=== PATIENT | male | born 1985 | race Caucasian/White ===

== ENCOUNTER → 2017-11-10 12:20 | Outpatient (CLI) | payer MEDICARE, SELFPAY ==
[2017-11-10 16:08] LABS: Platelet Count 185 K/mm3 (150-450)
[2017-11-10 16:24] LABS: AST(SGOT) 9 U/L (15-37); Alanine Aminotransfer ALT/SGPT 19 U/L (16-61); Albumin, Serum 3.6 g/dL (3.2-5.0); Alkaline Phosphatase 40 U/L (45-117); Bilirubin, Direct 0.08 mg/dL (0.00-0.30); Globulin 3.6 g/dL (2.2-4.2); Protein, Total 7.2 g/dL (6.4-8.2)
[2017-11-10 16:39] LABS: Valproic Acid (Depakene) Level 58 ug/mL (50-100)
== END ==
PROVIDERS: Registered Nurse; Family Provider Family Medicine; PCP Family Medicine; Visit Provider Family Medicine
DX: Z79.899 Other long term (current) drug therapy (principal); F91.9 Conduct disorder, unspecified
CPT/HCPCS: 36415; 80076; 80164; 85049

== ENCOUNTER 2018-02-18 11:57 | Inpatient (IN) | payer MEDICARE, SELFPAY ==
[2018-02-18 11:59] VITALS: BP 108/78; PULSE 87; RESP 16; TEMP 36.6; O2SAT 100; BMI 22.7
--- NOTE | 2018-02-18 12:08 | RAD_ITS ---
STUDY: X-RAY - LEFT FOOT CLINICAL: Male, 32 years old. PAIN AND SWELLING TO HEEL AREA. NO TRAUMA. TECHNIQUE: 3 view(s) of the foot. COMPARISON: None. FINDINGS: Normal talus, calcaneus, and tarsal bones. Normal visualized subtalar, talonavicular, calcaneocuboid, tarsal and tarsometatarsal articulations. Normal metatarsi. Normal metatarsophalangeal joint of the great toe. Normal tibial and fibular sesamoid bones. Normal interphalangeal joint of the great toe. Normal phalanges of the great toe. Normal second through fifth metatarsophalangeal joints. Normal interphalangeal joints and phalanges of the lesser toes. The soft tissue structures are unremarkable. RAD/Foot min 3 Views IMPRESSION: Normal x-ray examination of the foot. Electronically Signed: Constance Lopez MD at 13:43 EDT Tel , Service support ,
[2018-02-18 13:11] LABS: Absolute Lymphocyte Count 1.22 X10^3/ul (0.83-4.51); Absolute Neutrophil Count 4.2 X10^3/uL (2.0-7.7); Basophil# 0.02 X10^3/uL; Basophil% 0.3 % (0-1); Eosinophil# 0.09 X10^3/uL; Eosinophils% 1.6 % (0-5); Hematocrit 44.4 % (40-54); Hemoglobin 14.8 g/dl (13.0-16.5); Lymphocyte # 1.22 X10^3/ul (4.0); Mean Corp Hgb Conc 33.3 g/gl (32-36); Mean Corpuscular Hgb 31.4 pg (27.0-32.0); Mean Corpuscular Volume 94.3 fL (80-94); Mean Platelet Vol. 10.3 fl (6.2-12.0); Monocyte# 0.31 X10^3/uL; Monocyte% 5.3 % (0-10); Neutrophil # 4.15 X10^3/uL (2.7-7.7); Neutrophil % 71.6 % (47-70); Platelet Count 181 K/mm3 (150-450); RBC Distribution Width CV 12.7 % (11.6-14.6); Red Blood Count 4.71 M/mm3 (4.6-6.2); White Blood Count 5.8 K/mm3 (4.4-11.0)
[2018-02-18 13:12] LABS: POSITIVE COUNT NO; POSITIVE DIFFERENTIAL NO; POSITIVE MORPHOLOGY NO
[2018-02-18 13:21] LABS: Anion Gap 4 (5-15); BUN 16 mg/dL (7-18); BUN/Creat Ratio 17.2 RATIO (10-20); Calcium,Total 8.8 mg/dL (8.5-10.1); Chloride 105 mmol/L (98-107); Creatinine, Serum 0.93 mg/dL (0.70-1.30); EST Glomerular Filtration Rate 99 mL/min (>60); Est Glom Filt Rate - Afr Amer 120 mL/min (>60); Glucose 65 mg/dL (74-106); Potassium 4.5 mmol/L (3.5-5.1); Sodium Level 140 mmol/L (136-145)
--- NOTE | 2018-02-18 13:44 | ED.VISSUMM ---
- ER Visit Summary Date of Service: 02/18/18 Chief Complaint: Left foot swelling and redness] History of Present Illness: The patient is a 32 M [presents the emergency department with left foot redness and swelling that the mother and sister noticed yesterday. No significant trauma related. Patient is somewhat of a poor historian as he has a history of prior encephalitis. Patient has been flushed today. No fever noted at home. Patient does have a history of prior infection to that left foot over the area of the heel that required surgical debridement and there was concern for osteo-myelitis at the time. Patient's mother and sister noted that patient had a blister to the left heel yesterday. Patient was more active than usual 2 days ago and normally wears tennis shoes when he is out and about.] Physical Examination: [HEENT-PERRLA, EOMI. Cranial nerves II through XII grossly intact. TMs clear. Mucous membranes moist. No adenopathy. Cardiovascular-regular rate and rhythm without murmur or ectopy Lungs-clear to auscultation, chest wall stable without crepitus or subcu emphysema Abdomen-normoactive bowel sounds, soft, nontender, no rebound or rigidity, no peritoneal signs. Extremities-intact ?4, normal range of motion, normal pulses. Left foot-patient has what appears to be a large blister to the left heel with some mild tenderness to palpation. Patient has some edema to the foot and erythema as well as warmth. He is neurovascular intact distally. Test Results: [Blood cultures ordered. CBC with differential obtained showed a white count of 5.8, hemoglobin 14.8, hematocrit 44, platelets 181. Chemistries unremarkable. Glucose was 65. X-ray of the left foot read by myself as nothing acute and awaiting official report from radiology.] Emergency Department Course and Treatment: Patient was started on Unasyn] Treatment Plan: [Admit for IV antibiotics given his history of prior significant infection to this left heel and foot requiring surgical debridement.] Disposition: [Admit] Impression: [Cellulitis left foot] This note was generated with [email or web address] dictation software. It may contain incorrect words, spelling, and punctuation that were not noted in review of the chart prior to signing ED Disposition - Plan for ED Patient: Chief Complaint: Edema Referrals: Carrington Baumann MD [Primary Care Provider] -
[2018-02-18 14:23] VITALS: BP 119/82; PULSE 64; RESP 18; TEMP 36.6; O2SAT 98
--- NOTE | 2018-02-18 14:28 | HP.PCM_ITS ---
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 He was admitted via the ED on 02/18/18 with a complaint of left heel swelling and tenderness. history obtained from his mother and sister. Swelling and tenderness ahs been ongoing for the past 2 days. they thought it would resolve with application of ice packs. However, it persisted. They noted that the area had become soft and boggy, with associated erythema. He history of similar ulceration over his left heel, for which he had debridement done a few years ago.He often rubs his heels on the bed when sleeping,and family thinks this may be the cause of it. They also noticed erythema of his right heel. They therefore decided to bring him in. In the ED, vitals were T-97.9F, RR -18. MI-94. B-119/82. CBC showed no leucocytosis with wbc-5.8, and BMP was WNL. He was started on unasyn and is being admitted to be managed for cellulitis of his left heel. 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 Bilateral chest tube placement ~ 5 years ago for lung collapse Lives: With Family - mother Smoking Status: Former smoker Drugs: None Review of Systems Constitutional: Reports: Chills HEENT: Reports: Difficulty Swallowing - is chronic. Cardiovascular: Denies: Chest Pain, Palpitations Respiratory: Denies: Cough, Hemoptysis, Pleuritic Pain, Shortness of Breath, Shortness of breath at rest, Sputum production Gastrointestinal: Denies: Abdominal Pain, Nausea, Vomiting Genitourinary: Denies: Dysuria Musculoskeletal: Reports: - - heel swelling and redness. 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 Hematologic/ Lymphatic: Denies: Easy Bruising, Easy Bleeding VTE Information - Inpt Only VTE Present on Admission: No VTE Pharm Prophylaxis ordered?: Yes Patient Problems: Active and Suspected Problems Cellulitis of left heel (Acute) - Physical Exam General: Alert, Cooperative, No apparent distress HEENT: Atraumatic, PERRLA, EOMI, Normocephalic Oral: Moist Mucosa Neck: Supple, No JVD, Negative Carotid Bruits Lungs: Clear to auscultation, Normal air movement, No rhonchi, No wheeze, No rales Cardiovascular: Regular rate, Regular Rhythm, Normal S1, Normal S2, No murmurs Abdomen: Bowel Sounds Present, Soft, Non Tender, Non-Distended, No Hepato- splenomegaly Extremities: - - 5x4cm soft, fluctuant abscess over the left heel, surrounded by mild erythema. Minimal tenderness to touch. blanchable erythema (~ 1x1cm) over right heel Skin: No rashes, No breakdown Musculoskeletal: - - minimal contractures of LEs from encephalitis Lymphatic: No Cervical, Supraclavicular, or Inguinal Adenopathy Neurological: Cranial nerves II-XII grossly intact, - - mild expressive aphasia due to encephalitis. 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 Abscess of left heel * per family, often rubs heels on sheets whilst sleeping; has no heel protectors * 5x4cm abscess over left heel, with some surrounding erythema * CBC: no leucocytosis or bands * started on IV unasyn in ED; will continue * heel protectors. * consult podiatry for possible I&D if needed. * 2. 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 * swallowing precautions. 3. DVT prophylaxis: heparin 4. GI prophylaxis: pepcid Code Visit OBSV E&M: 39468 Initial observation care L2
[2018-02-18 15:23] VITALS: BMI 22.7; BMI 22.8
[2018-02-18 16:12] VITALS: BP 117/79; PULSE 69; RESP 18; TEMP 37.1; O2SAT 96
[2018-02-18 17:01] LABS: Erythrocyte Sedimentation Rate 16 mm/hr (0-15)
--- NOTE | 2018-02-18 17:35 | PCM.PROGNOTE ---
Patient Problems: Active and Suspected Problems Cellulitis of left heel (Acute) Pain in left foot (Acute) Subjective: This 32 year old male patient was consulted to podiatry for left heel cellulitis as well as a slight boggy area to the heel. The patient is a poor historian due to some mental disability from encephalopathy in the past. I spoke to one of his sisters via telephone this afternoon. She says that he had been doing a lot of walking the last few days and that he also rubs his heels back and forth on his bed and the ground at times if he is nervous. She says that two days ago the mother and sister noticed some slight redness starting around the heel, and that yesterday the redness got slightly worse and he had some tenderness. They said they had been trying to keep his heels offloaded the last day, but wanted him to be checked in the ER to be safe today since the patient had a history of a heel ulcer that needed a surgical debridement approximately 4 or 5 years ago. Patient was admitted through the ER for IV antibiotics and further evaluation. Patient is currently afebrile and appears to be in no acute distress. - Physical Exam General: Alert, Oriented x3, Cooperative Extremities: Capillary Refill Less than 3 Seconds, No Calf Tenderness - negative isabelle and dailey sign, Edema - very minor edema to left heel area, Peripheral Pulses Normal - DP and PT pulses palpable Skin: - - No open ulcers or wounds noted. Very slight boggy area appreciated to left heel. There is no significant extending cellulitis appreciated at this time. There is very minor erythema surrounding the area (this is much improved over the last two or so hours on IV antibiotics according to his nurse). Again there is no open areas at this time so there is no purulence currently appreciated. Some tenderness noted to the area on palpation. Musculoskeletal: Tenderness - Slight tenderness to left heel Neurological: Sensory exam intact to light touch and pain Psych/Mental Status: Appropriate Vital Signs Temp Pulse Resp BP Pulse Ox 98.7 F 69 18 117/79 96 02/18/18 16:12 02/18/18 16:12 02/18/18 16:12 02/18/18 16:12 02/18/18 16:12 Oxygen Delivery Method Room Air Weight: 69.9 kg Body Mass Index (BMI) 22.7 Medical Necessity - Tobacco Use Smoking Status: Former smoker Assessment/Plan Active and Suspected Problems Cellulitis of left heel (Acute) Pain in left foot (Acute) Cellulitis of left heel Pain left foot Patient was carefully examined and evaluated bedside this evening in great detail. Patient is a poor historian due to previous encephalopathy, so much of the history and information was gathered from speaking with patient's sister via telephone. Currently patient's WBC is 5.8. ESR is 16 and his CRP is 6.4. Blood cultures still pending. Foot x-rays taken of left foot and were read by the radiologist as normal x-ray examination of the foot. No soft tissue emphysema noted. His vital signs are all currently stable. Patient is currently on IV unasyn. Again, according to the patient's nurse, there has been a significant reduction in surrounding erythema with just a couple hours of IV antibiotics so far. At this time, I recommend the patient be non weight bearing to the left heel. I also recommend that the patient have both heels completely floated off of the end of pillows so there is absolutely no pressure to his heels at all times while in bed. The patient has short term memory loss and he likes to move his heels for comfort according to the patient's family, so I recommend frequent checks on this patient to make sure he is being compliant with his offloading protocol. Medical management by primary team is appreciated. Podiatry will continue to follow this patient while in house and to monitor if any further intervention is warranted. Please contact with any questions or concerns.
[2018-02-18 20:15] VITALS: BP 107/70; PULSE 78; RESP 16; TEMP 36.3; O2SAT 100
[2018-02-18] MEDS: Nortriptyline 25 MG Capsule 50 MG PO (22:45)
[2018-02-18] MEDS: Divalproex Sodium 125 MG SPRINKLE 1000 MG PO (22:46)
[2018-02-19] MEDS: 0.9% NaCl Peripheral Flush Adult/Peds IV (01:14)
[2018-02-19 02:01] VITALS: BP 99/63; PULSE 92; RESP 16; TEMP 36.5; O2SAT 98
[2018-02-19 05:33] LABS: Absolute Lymphocyte Count 1.72 X10^3/ul (0.83-4.51); Absolute Neutrophil Count 3.5 X10^3/uL (2.0-7.7); Basophil# 0.02 X10^3/uL; Basophil% 0.3 % (0-1); Eosinophil# 0.14 X10^3/uL; Eosinophils% 2.4 % (0-5); Hematocrit 42.6 % (40-54); Lymphocyte # 1.72 X10^3/ul (4.0); Mean Corp Hgb Conc 32.9 g/gl (32-36); Mean Corpuscular Hgb 30.8 pg (27.0-32.0); Mean Corpuscular Volume 93.8 fL (80-94); Mean Platelet Vol. 10.5 fl (6.2-12.0); Monocyte# 0.33 X10^3/uL; Monocyte% 5.7 % (0-10); Neutrophil # 3.52 X10^3/uL (2.7-7.7); Neutrophil % 61.4 % (47-70); Platelet Count 172 K/mm3 (150-450); RBC Distribution Width CV 12.7 % (11.6-14.6); RBC Distribution Width SD 43.6 fl (35.1-43.9); Red Blood Count 4.54 M/mm3 (4.6-6.2); White Blood Count 5.7 K/mm3 (4.4-11.0)
[2018-02-19 05:38] LABS: POSITIVE COUNT NO; POSITIVE DIFFERENTIAL NO; POSITIVE MORPHOLOGY NO
[2018-02-19 05:41] LABS: Anion Gap 7 (5-15); BUN 22 mg/dL (7-18); BUN/Creat Ratio 29.2 RATIO (10-20); Calcium,Total 8.6 mg/dL (8.5-10.1); Chloride 105 mmol/L (98-107); Creatinine, Serum 0.75 mg/dL (0.70-1.30); EST Glomerular Filtration Rate 126 mL/min (>60); Est Glom Filt Rate - Afr Amer 153 mL/min (>60); Estimated Creatinine Clearance 138.51 ml/min; Glucose 76 mg/dL (74-106); Potassium 4.3 mmol/L (3.5-5.1); Sodium Level 142 mmol/L (136-145)
[2018-02-19 09:26] VITALS: BP 112/80; PULSE 86; RESP 18; TEMP 37.1; O2SAT 97
--- NOTE | 2018-02-19 09:27 | PCM.PN.HOSP ---
Patient Problems: Active and Suspected Problems Pain in left foot (Acute) Cellulitis of left heel (Acute) Subjective: Patient is a 32-year-old male with a past history of mental consolidation due to encephalitis. He was admitted on 02/18/2018 with a complaint of left heel swelling and tenderness. He has been managed for cellulitis of the left heel. He is on IV Unasyn and has remained stable. Podiatry is on board. Seen and examined this morning. Had no active complaints. Unable to do complains of review of systems on account of patient's MRDD. Vitals/I&O's: Vital Signs Temp Pulse Resp BP Pulse Ox 97.7 F L 92 16 99/63 98 02/19/18 02:01 02/19/18 02:01 02/19/18 02:01 02/19/18 02:01 02/19/18 02:01 Oxygen Delivery Method Room Air Weight: 154 lb 1.65 oz Body Mass Index (BMI) 22.7 Intake and Output for Last 24 Hours 02/17/18 02/18/18 02/19/18 23:59 23:59 23:59 Intake Total 240 / 240 Balance 240 / 240 General: Alert, Cooperative, Confused HEENT: Atraumatic, PERRLA, EOMI, Normocephalic Oral: Moist Mucosa Neck: Supple, No JVD, Negative Carotid Bruits Lungs: Clear to auscultation, Normal air movement, No rhonchi, No wheeze Cardiovascular: Regular rate, Regular Rhythm, Normal S1, Normal S2, No murmurs Abdomen: Bowel Sounds Present, Soft, Non Tender, Non-Distended, No Hepato-splenomegaly Extremities: No clubbing, No cyanosis, No edema, Capillary Refill Less than 3 Seconds, - - Redness of left heel and the swelling have improved significantly since yesterday. Erythema is pretty much resolved. Has slight bulky area over the left heel. Feet were propped up on a pillow in bed. Minimal erythema over right heel and has improved significantly from yesterday. Skin: No rashes, No breakdown Musculoskeletal: No Tenderness to Palpation of Joints or Extremities Lymphatic: No Cervical, Supraclavicular, or Inguinal Adenopathy Neurological: Cranial nerves II-XII grossly intact, Slurred Speech - From MRDD due to encephalitis Psych/Mental Status: Normal Affect Laboratory Results 02/19/18 04:55: WBC 5.7, RBC 4.54 L, Hgb 14.0, Hct 42.6, MCV 93.8, MCH 30.8, MCHC 32.9, RDW 12.7, RDW Differential 43.6, Plt Count 172, MPV 10.5, Immature Gran % (Auto) 0.200, Neut % (Auto) 61.4, Lymph % (Auto) 30.0, [place] % (Auto) 5.7, Eos % (Auto) 2.4, Baso % (Auto) 0.3, Absolute Neuts (auto) 3.5, Absolute Lymphs (auto) 1.72, Total Counted Not Reportable 02/19/18 04:55: Sodium 142, Potassium 4.3, Chloride 105, Carbon Dioxide 30.0, Anion Gap 7, BUN 22 H, Creatinine 0.75, Estim Creat Clear Calc 138.51, Est GFR (MDRD) Af Amer 153, Est GFR (MDRD) Non-Af 126, BUN/Creatinine Ratio 29.2 H, Glucose 76, Calcium 8.6 Current Medications Acetaminophen (Tylenol) 650 mg PO Q6H PRN PRN PRN Reason: PAIN Divalproex Sodium (Depakote Sprinkles) 500 mg PO BREAKFAST [facility] Divalproex Sodium (Depakote Sprinkles) 1,000 mg PO QHS [facility] Last Admin: 02/18/18 22:46 Dose: 1,000 mg Enoxaparin Sodium (Lovenox) 40 mg SC DAILY@1000 [facility] Ampicillin Sodium/Sulbactam (Sodium 3 gm/ Sodium Chloride) 112 mls @ 150 mls/hr IV Q6 [facility] Last Admin: 02/19/18 06:26 Dose: 150 mls/hr Magnesium Hydroxide (Milk Of Magnesia) 30 ml PO DAILY PRN PRN PRN Reason: Constipation Non-Formulary Medication (Haloperidol Decanoate [Haldol Decanoate 100]) 100 mg IM Q14D [facility] Nortriptyline HCl (Pamelor) 50 mg PO QHS [facility] Last Admin: 02/18/18 22:45 Dose: 50 mg Pantoprazole Sodium (Protonix) 20 mg PO DAILY [facility] Sodium Chloride () 5 - 30 ml IV UD PRN PRN Reason: SALINE FLUSH Last Admin: 02/19/18 01:14 Dose: 10 ml Medical Necessity - Tobacco Use Smoking Status: Former smoker Assessment/Plan Active and Suspected Problems Pain in left foot (Acute) Cellulitis of left heel (Acute) 32 y/o male with a PMH of 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 Cellulitis and Abscess of left heel resolving. Looks much better CBC: still no leucocytosis. had similar presentation some years ago and had debridement of the left heel on IV unasyn- today is day 2. podiatry on board; advocate patient be nonweight bearing on left heel. both heels should be completely floated off end of pillows so theres no pressure on his heels 2. 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 swallowing precautions. 3. DVT prophylaxis: heparin 4. GI prophylaxis: pepcid Disposition: for possible dc tomorrow. This note was generated with [employer] dictation software. It may contain incorrect words, spelling, and punctuation that were not noted in checking the note before signing. Code Visit Inpatient E&M: 00560 Subs Hosp L2
[2018-02-19] MEDS: Divalproex Sodium 125 MG SPRINKLE 500 MG PO (09:29)
[2018-02-19] MEDS: Pantoprazole Sodium 20 MG Tablet PO (09:30)
--- NOTE | 2018-02-19 09:32 | PN_ITS ---
Patient Problems: Active and Suspected Problems Pain in left foot (Acute) Cellulitis of left heel (Acute) Subjective: Patient is a 32-year-old male with a past history of mental consolidation due to encephalitis. He was admitted on 02/18/2018 with a complaint of left heel swelling and tenderness. He has been managed for cellulitis of the left heel. He is on IV Unasyn and has remained stable. Podiatry is on board. Seen and examined this morning. Had no active complaints. Unable to do complains of review of systems on account of patient's MRDD. Vitals/I&O's: Vital Signs Temp Pulse Resp BP Pulse Ox 97.7 F L 92 16 99/63 98 02/19/18 02:01 02/19/18 02:01 02/19/18 02:01 02/19/18 02:01 02/19/18 02:01 Oxygen Delivery Method Room Air Weight: 154 lb 1.65 oz Body Mass Index (BMI) 22.7 Intake and Output for Last 24 Hours 02/17/18 02/18/18 02/19/18 23:59 23:59 23:59 Intake Total 240 / 240 Balance 240 / 240 General: Alert, Cooperative, Confused HEENT: Atraumatic, PERRLA, EOMI, Normocephalic Oral: Moist Mucosa Neck: Supple, No JVD, Negative Carotid Bruits Lungs: Clear to auscultation, Normal air movement, No rhonchi, No wheeze Cardiovascular: Regular rate, Regular Rhythm, Normal S1, Normal S2, No murmurs Abdomen: Bowel Sounds Present, Soft, Non Tender, Non-Distended, No Hepato- splenomegaly Extremities: No clubbing, No cyanosis, No edema, Capillary Refill Less than 3 Seconds, - - Redness of left heel and the swelling have improved significantly since yesterday. Erythema is pretty much resolved. Has slight bulky area over the left heel. Feet were propped up on a pillow in bed. Minimal erythema over right heel and has improved significantly from yesterday. Skin: No rashes, No breakdown Musculoskeletal: No Tenderness to Palpation of Joints or Extremities Lymphatic: No Cervical, Supraclavicular, or Inguinal Adenopathy Neurological: Cranial nerves II-XII grossly intact, Slurred Speech - From MRDD due to encephalitis Psych/Mental Status: Normal Affect Laboratory Results 02/19/18 04:55: WBC 5.7, RBC 4.54 L, Hgb 14.0, Hct 42.6, MCV 93.8, MCH 30.8, MCHC 32.9, RDW 12.7, RDW Differential 43.6, Plt Count 172, MPV 10.5, Immature Gran % (Auto) 0.200, Neut % (Auto) 61.4, Lymph % (Auto) 30.0, [place] % (Auto) 5.7 , Eos % (Auto) 2.4, Baso % (Auto) 0.3, Absolute Neuts (auto) 3.5, Absolute Lymphs (auto) 1.72, Total Counted Not Reportable 02/19/18 04:55: Sodium 142, Potassium 4.3, Chloride 105, Carbon Dioxide 30.0, Anion Gap 7, BUN 22 H, Creatinine 0.75, Estim Creat Clear Calc 138.51, Est GFR ( MDRD) Af Amer 153, Est GFR (MDRD) Non-Af 126, BUN/Creatinine Ratio 29.2 H, Glucose 76, Calcium 8.6 Current Medications Acetaminophen (Tylenol) 650 mg PO Q6H PRN PRN PRN Reason: PAIN Divalproex Sodium (Depakote Sprinkles) 500 mg PO BREAKFAST [facility] Divalproex Sodium (Depakote Sprinkles) 1,000 mg PO QHS [facility] Last Admin: 02/18/18 22:46 Dose: 1,000 mg Enoxaparin Sodium (Lovenox) 40 mg SC DAILY@1000 [facility] Ampicillin Sodium/Sulbactam (Sodium 3 gm/ Sodium Chloride) 112 mls @ 150 mls/ hr IV Q6 [facility] Last Admin: 02/19/18 06:26 Dose: 150 mls/hr Magnesium Hydroxide (Milk Of Magnesia) 30 ml PO DAILY PRN PRN PRN Reason: Constipation Non-Formulary Medication (Haloperidol Decanoate [Haldol Decanoate 100]) 100 mg IM Q14D [facility] Nortriptyline HCl (Pamelor) 50 mg PO QHS [facility] Last Admin: 02/18/18 22:45 Dose: 50 mg Pantoprazole Sodium (Protonix) 20 mg PO DAILY [facility] Sodium Chloride () 5 - 30 ml IV UD PRN PRN Reason: SALINE FLUSH Last Admin: 02/19/18 01:14 Dose: 10 ml Medical Necessity - Tobacco Use Smoking Status: Former smoker Assessment/Plan Active and Suspected Problems Pain in left foot (Acute) Cellulitis of left heel (Acute) 32 y/o male with a PMH of 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 Cellulitis and Abscess of left heel * resolving. Looks much better * CBC: still no leucocytosis. * had similar presentation some years ago and had debridement of the left heel * on IV unasyn- today is day 2. * podiatry on board; advocate patient be nonweight bearing on left heel. * both heels should be completely floated off end of pillows so theres no pressure on his heels * * 2. 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 * swallowing precautions. 3. DVT prophylaxis: heparin 4. GI prophylaxis: pepcid Disposition: for possible dc tomorrow. This note was generated with [employer] dictation software. It may contain incorrect words, spelling, and punctuation that were not noted in checking the note before signing. Code Visit Inpatient E&M: 09053 Subs Hosp L2
--- NOTE | 2018-02-19 10:21 | CM.UR ---
Attempted to meet with patient however he is unable to give information and no family is at bedside. Anson Guzman RN, CCM.
--- NOTE | 2018-02-19 10:50 | PN_ITS ---
Patient Problems: Active and Suspected Problems Pain in left foot (Acute) Cellulitis of left heel (Acute) Subjective: Patient was seen again this morning resting bedside for left heel pressure injury. He is resting comfortably and in no distress. He has an appetite. He says he had no issues throughout the evening. Again, patient is poor historian due to his mental disability. Patient remains afebrile. - Physical Exam General: Alert, Oriented x3, Cooperative Extremities: Capillary Refill Less than 3 Seconds, No Calf Tenderness - negative isabelle and dailey sign, Edema - decresed edema to left heel, Peripheral Pulses Normal - DP and PT pulses palpable Skin: - - No open ulcers or wounds appreciated again today. Very minor boggy area appreciated to left heel is slightly improved today. There is no significant extending cellulitis appreciated at this time. There is very minor erythema surrounding the area and this has again improved since the patietn was evaluated last evening. Patient's pain to the left heel has improved again today as well. Musculoskeletal: - - Improving tenderness to left heel Neurological: Sensory exam intact to light touch and pain Psych/Mental Status: Appropriate Vital Signs Temp Pulse Resp BP Pulse Ox 98.8 F 86 18 112/80 97 02/19/18 09:26 02/19/18 09:26 02/19/18 09:26 02/19/18 09:26 02/19/18 09:26 Oxygen Delivery Method Room Air Weight: 69.9 kg Body Mass Index (BMI) 22.7 Intake and Output for Last 24 Hours 02/17/18 02/18/18 02/19/18 23:59 23:59 23:59 Intake Total 240 / 240 Balance 240 / 240 Laboratory Tests Past 24 Hrs 02/19/18 02/19/18 04:55 04:55 WBC 5.7 RBC 4.54 L Hgb 14.0 Hct 42.6 MCV 93.8 MCH 30.8 MCHC 32.9 RDW 12.7 RDW Differential 43.6 Plt Count 172 MPV 10.5 Immature Gran % (Auto) 0.200 Neut % (Auto) 61.4 Lymph % (Auto) 30.0 [place] % (Auto) 5.7 Eos % (Auto) 2.4 Baso % (Auto) 0.3 Absolute Neuts (auto) 3.5 Absolute Lymphs (auto) 1.72 Total Counted Not Reportable Sodium 142 Potassium 4.3 Chloride 105 Carbon Dioxide 30.0 Anion Gap 7 BUN 22 H Creatinine 0.75 Estim Creat Clear Calc 138.51 Est GFR (MDRD) Af Amer 153 Est GFR (MDRD) Non-Af 126 BUN/Creatinine Ratio 29.2 H Glucose 76 Calcium 8.6 Medical Necessity - Tobacco Use Smoking Status: Former smoker Assessment/Plan Active and Suspected Problems Pain in left foot (Acute) Cellulitis of left heel (Acute) Cellulitis of left heel (improving) Pain left foot (improving) Patient was carefully examined and evaluated bedside again today. 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 Currently patient's WBC is 5.7. ESR is 16 and his CRP is 6.4. Blood cultures still pending. Vital signs are all stable at this time. Foot x-rays taken yesterday of left foot and were read by the radiologist as normal x-ray examination of the foot. No soft tissue emphysema noted. Patient is currently on IV unasyn. Erythema continues to improve to the left heel while on antibiotics. I continue to recommend the patient be non weight bearing to the left heel. I also recommend that the patient have both heels completely floated off of the end of pillows so there is absolutely no pressure to his heels at all times while in bed. I recommend and placed orders as well for the patient to be non weight bearing to the left heel as well as to have both of his heels completely floated off of the ends of pillows at all times while in bed. I also placed an order for frequent checks on this patient to make sure he remains compliant, as he has short term memory loss and moves his legs/feet for comfort. Medical management by primary team is appreciated. Podiatry will continue to follow this patient while in house. Please contact with any questions or concerns.
[2018-02-19 14:25] VITALS: BP 95/75; PULSE 101; RESP 18; TEMP 36.4; O2SAT 99
[2018-02-19 20:46] VITALS: BP 112/77; PULSE 87; RESP 18; TEMP 36.9; O2SAT 100
[2018-02-19] MEDS: Divalproex Sodium 125 MG SPRINKLE 1000 MG PO (22:48)
[2018-02-19] MEDS: Nortriptyline 25 MG Capsule 50 MG PO (22:48)
[2018-02-20 03:32] VITALS: BP 112/80; PULSE 78; RESP 18; TEMP 36.8; O2SAT 99
[2018-02-20 07:01] LABS: Absolute Lymphocyte Count 1.49 X10^3/ul (0.83-4.51); Absolute Neutrophil Count 3.4 X10^3/uL (2.0-7.7); Basophil# 0.02 X10^3/uL; Basophil% 0.4 % (0-1); Eosinophil# 0.09 X10^3/uL; Eosinophils% 1.7 % (0-5); Hematocrit 42.9 % (40-54); Hemoglobin 14.2 g/dl (13.0-16.5); Lymphocyte # 1.49 X10^3/ul (4.0); Lymphocyte % 27.7 % (19-41); Mean Corp Hgb Conc 33.1 g/gl (32-36); Mean Corpuscular Hgb 30.9 pg (27.0-32.0); Mean Corpuscular Volume 93.3 fL (80-94); Mean Platelet Vol. 10.4 fl (6.2-12.0); Monocyte# 0.33 X10^3/uL; Monocyte% 6.1 % (0-10); Neutrophil # 3.43 X10^3/uL (2.7-7.7); Neutrophil % 63.7 % (47-70); Platelet Count 179 K/mm3 (150-450); RBC Distribution Width CV 12.7 % (11.6-14.6); White Blood Count 5.4 K/mm3 (4.4-11.0)
[2018-02-20 07:02] LABS: POSITIVE COUNT NO; POSITIVE DIFFERENTIAL NO; POSITIVE MORPHOLOGY NO
[2018-02-20 07:20] LABS: Anion Gap 8 (5-15); BUN 16 mg/dL (7-18); Calcium,Total 8.6 mg/dL (8.5-10.1); Chloride 105 mmol/L (98-107); Creatinine, Serum 0.64 mg/dL (0.70-1.30); EST Glomerular Filtration Rate 153 mL/min (>60); Est Glom Filt Rate - Afr Amer 185 mL/min (>60); Estimated Creatinine Clearance 162.31 ml/min; Glucose 77 mg/dL (74-106); Potassium 4.1 mmol/L (3.5-5.1); Sodium Level 143 mmol/L (136-145)
[2018-02-20 08:03] VITALS: BP 123/94; PULSE 89; RESP 18; TEMP 36.4; O2SAT 98
[2018-02-20] MEDS: Divalproex Sodium 125 MG SPRINKLE 500 MG PO (08:09)
[2018-02-20] MEDS: Pantoprazole Sodium 20 MG Tablet PO (08:12)
--- NOTE | 2018-02-20 08:35 | PCM.PROGNOTE ---
Patient Problems: Active and Suspected Problems Pain in left foot (Acute) Cellulitis of left heel (Acute) Subjective: Patient seen today for follow up on cellulitis left heel. Patient was sitting up in chair drawing a picture. Patient is afebrile, WBC normal. - Physical Exam General: Alert, Oriented x3, Cooperative, No apparent distress Extremities: No cyanosis, No edema, Capillary Refill Less than 3 Seconds, No Calf Tenderness, Peripheral Pulses Normal, - - Left foot/heel: cellulitis appears to be resolved at this time. There are no open lesions, no drainage, no maloder, no necrosis, no blistering, no fluctuance appreciated bilateral foot/ankle. There is no streaking, no erythema, no ecchymosis bilateral foot/ankle. Smooth painfree ROM to the foot/ankle bilateral. Vital Signs Temp Pulse Resp BP Pulse Ox 97.6 F L 89 18 123/94 H 98 02/20/18 08:03 02/20/18 08:03 02/20/18 08:03 02/20/18 08:03 02/20/18 08:03 Oxygen Delivery Method Room Air Weight: 69.9 kg Body Mass Index (BMI) 22.7 Intake and Output for Last 24 Hours 02/18/18 02/19/18 02/20/18 23:59 23:59 23:59 Intake Total 240 / 240 1577 / 1577 400 / 400 Balance 240 / 240 1577 / 1577 400 / 400 Laboratory Tests Past 24 Hrs 02/20/18 02/20/18 05:25 05:25 WBC 5.4 RBC 4.60 Hgb 14.2 Hct 42.9 MCV 93.3 MCH 30.9 MCHC 33.1 RDW 12.7 RDW Differential 43.0 Plt Count 179 MPV 10.4 Immature Gran % (Auto) 0.400 Neut % (Auto) 63.7 Lymph % (Auto) 27.7 [place] % (Auto) 6.1 Eos % (Auto) 1.7 Baso % (Auto) 0.4 Absolute Neuts (auto) 3.4 Absolute Lymphs (auto) 1.49 Total Counted Not Reportable Sodium 143 Potassium 4.1 Chloride 105 Carbon Dioxide 30.0 Anion Gap 8 BUN 16 Creatinine 0.64 L Estim Creat Clear Calc 162.31 Est GFR (MDRD) Af Amer 185 Est GFR (MDRD) Non-Af 153 BUN/Creatinine Ratio 25.0 H Glucose 77 Calcium 8.6 Medical Necessity - Tobacco Use Smoking Status: Former smoker Assessment/Plan Active and Suspected Problems Pain in left foot (Acute) Cellulitis of left heel (Acute) Cellulitis of left heel Pain left foot Re-evaluation performed. Left foot much improved with antibiotic therapy. Blood cultures pending. No wound culture was obtained to left foot as there are no open ulcerations or areas to culture at this time. Keep both heels offloaded at all times. Medical management by primary team is appreciated. Podiatry will continue to follow this patient while in house and to monitor if any further intervention is warranted. Please contact with any questions or concerns.
--- NOTE | 2018-02-20 10:32 | PCM.DC ---
- Discharge Diagnoses Current Active Problems: Current Active and Chronic Problems Pain in left foot (Acute) Cellulitis of left heel (Acute) You will use the following diet at home:: Regular Your food should be the consistency of: Regular Discharge Activity: Return to Normal Activity Weight Bearing Status: Weight bearing as tolerated Call your doctor if you observe: Fever of 101 or Higher, Shortness of breath, Dizziness, Fainting spells, Chest pain, Increased palpitations (irregular heartbeat), Uncontrolled pain Allergies/Adverse Reactions: Allergies No Known Allergies Allergy (Verified 02/18/18 12:00) Medications to take at Discharge Haloperidol Decanoate [Haldol Decanoate 100] 100 mg IM Q14D #1 02/07/14 Omeprazole [Prilosec] 20 mg PO DAILY 05/17/14 Divalproex Sodium [Depakote] 1,000 mg PO QHS 02/18/18 Divalproex Sodium [Depakote] 500 mg PO BREAKFAST 02/18/18 Nortriptyline HCl 50 mg PO QHS 02/18/18 Amox/Clavulanate Tablet [Augmentin Tablet] 875 mg PO Q12H #14 tab 02/20/18 The following prescriptions were given: Amox/Clavulanate Tablet [Augmentin Tablet] 875 mg PO Q12H #14 tab Primary Care Physician: Carrington Baumann MD [Primary Care Provider] - Please follow up with your Primary Care Physician in: 2 weeks. Please Follow Up With: Jevon Nielsen DPM When: please call his office.
--- NOTE | 2018-02-20 14:47 | PCM.DC.SUM ---
Discharge Date and Diagnosis Date of Admission: 02/18/18 Date of Discharge: 02/20/18 - Primary Discharge Diagnosis Left heel cellulitis, no evidence of abscess. 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 Electronically Signed: Constance Lopez MD at 13:43 EDT Tel , Service support , Dr. Florez, Dr. Nielsen, podiatry medicine. Operations: None Procedures: None Summary of Care Provided: Patient seen and examined on the day of discharge and appeared to be stable to be discharged home. He is nonverbal and no reported complaints or symptoms. His vital signs are stable. Erythema and swelling of the left he almost completely resolved. - Physical Exam General: Alert, nonverbal, Cooperative, No apparent distress. HEENT: Atraumatic, PERRLA, EOMI. Neck: Supple, No JVD, Negative Carotid Bruits, Trachea Midline, Thyroid Normal. Lungs: Clear to auscultation, Normal air movement, No rhonchi, No wheeze, No rales. Cardiovascular: Regular rate, Regular Rhythm, Normal S1, Normal S2, PMI Normal. Abdomen: Bowel Sounds Present, Soft, Non Tender, Non-Distended, No Hepato-splenomegaly. Extremities: No clubbing, No cyanosis, No edema Skin: No rashes, No breakdown Neurological: Neuro grossly intact Hospital course: This is a 2-3 years old male patient admitted because of left heel swelling and pain and he was found to have left heel cellulitis. The patient has mental retardation and most of the information was obtained from his mother and sister during this hospital stay. He was treated with IV Unasyn. X-ray of the left foot was normal without evidence of acute fractures or significant soft tissue changes. Podiatry medicine consulted and recommended to continue IV antibiotics without need for surgical interventions. With IV antibiotics, swelling and erythema of the left hand significantly improved and almost resolved. His blood culture showed no growth in 48 hours. He remained afebrile throughout admission. Routine blood work was unremarkable. Patient discharged home in a stable medical condition, discharged on Augmentin twice daily for 7 days, plan to follow-up with podiatry medicine later this week, follow-up with PCP in 2 weeks. Discharge Activity: Return to Normal Activity Weight Bearing Status: Weight bearing as tolerated Call your doctor if you observe: Fever of 101 or Higher, Shortness of breath, Dizziness, Fainting spells, Chest pain, Increased palpitations (irregular heartbeat), Uncontrolled pain Home Medications: Medications to take at Discharge Haloperidol Decanoate [Haldol Decanoate 100] 100 mg IM Q14D #1 02/07/14 Omeprazole [Prilosec] 20 mg PO DAILY 05/17/14 Divalproex Sodium [Depakote] 1,000 mg PO QHS 02/18/18 Divalproex Sodium [Depakote] 500 mg PO BREAKFAST 02/18/18 Nortriptyline HCl 50 mg PO QHS 02/18/18 Amox/Clavulanate Tablet [Augmentin Tablet] 875 mg PO Q12H #14 tab 02/20/18 Following Prescrptions Were Given to Patient: Amox/Clavulanate Tablet [Augmentin Tablet] 875 mg PO Q12H #14 tab Primary Care Physician: Carrington Baumann MD [Primary Care Provider] - Please follow up with your Primary Care Physician in: 2 weeks. Please Follow Up With: Jevon Nielsen DPM When: please call his office. Disposition: Home Minutes spent on discharge:: 26 Patient Condition:: Stable Medical Necessity - Tobacco Use Smoking Status: Former smoker Meaningful Use Info Meaningful Use Diagnoses (Choose all that apply): None applicable Code Visit Inpatient E&M: 55977 Disch Hosp
--- NOTE | 2018-02-20 14:52 | DS.PCM_ITS ---
Discharge Date and Diagnosis Date of Admission: 02/18/18 Date of Discharge: 02/20/18 - Primary Discharge Diagnosis Left heel cellulitis, no evidence of abscess. 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 Electronically Signed: Constance Lopez MD at 13:43 EDT Tel , Service support , Dr. Florez, Dr. Nielsen, podiatry medicine. Operations: None Procedures: None Summary of Care Provided: Patient seen and examined on the day of discharge and appeared to be stable to be discharged home. He is nonverbal and no reported complaints or symptoms. His vital signs are stable. Erythema and swelling of the left he almost completely resolved. - Physical Exam General: Alert, nonverbal, Cooperative, No apparent distress. HEENT: Atraumatic, PERRLA, EOMI. Neck: Supple, No JVD, Negative Carotid Bruits, Trachea Midline, Thyroid Normal. Lungs: Clear to auscultation, Normal air movement, No rhonchi, No wheeze, No rales. Cardiovascular: Regular rate, Regular Rhythm, Normal S1, Normal S2, PMI Normal. Abdomen: Bowel Sounds Present, Soft, Non Tender, Non-Distended, No Hepato- splenomegaly. Extremities: No clubbing, No cyanosis, No edema Skin: No rashes, No breakdown Neurological: Neuro grossly intact Hospital course: This is a 2-3 years old male patient admitted because of left heel swelling and pain and he was found to have left heel cellulitis. The patient has mental retardation and most of the information was obtained from his mother and sister during this hospital stay. He was treated with IV Unasyn. X-ray of the left foot was normal without evidence of acute fractures or significant soft tissue changes. Podiatry medicine consulted and recommended to continue IV antibiotics without need for surgical interventions. With IV antibiotics, swelling and erythema of the left hand significantly improved and almost resolved. His blood culture showed no growth in 48 hours. He remained afebrile throughout admission. Routine blood work was unremarkable. Patient discharged home in a stable medical condition, discharged on Augmentin twice daily for 7 days, plan to follow-up with podiatry medicine later this week, follow-up with PCP in 2 weeks. Discharge Activity: Return to Normal Activity Weight Bearing Status: Weight bearing as tolerated Call your doctor if you observe: Fever of 101 or Higher, Shortness of breath, Dizziness, Fainting spells, Chest pain, Increased palpitations (irregular heartbeat), Uncontrolled pain Home Medications: Medications to take at Discharge Haloperidol Decanoate [Haldol Decanoate 100] 100 mg IM Q14D #1 02/07/14 Omeprazole [Prilosec] 20 mg PO DAILY 05/17/14 Divalproex Sodium [Depakote] 1,000 mg PO QHS 02/18/18 Divalproex Sodium [Depakote] 500 mg PO BREAKFAST 02/18/18 Nortriptyline HCl 50 mg PO QHS 02/18/18 Amox/Clavulanate Tablet [Augmentin Tablet] 875 mg PO Q12H #14 tab 02/20/18 Following Prescrptions Were Given to Patient: Amox/Clavulanate Tablet [Augmentin Tablet] 875 mg PO Q12H #14 tab Primary Care Physician: Carrington Baumann MD [Primary Care Provider] - Please follow up with your Primary Care Physician in: 2 weeks. Please Follow Up With: Jevon Nielsen DPM When: please call his office. Disposition: Home Minutes spent on discharge:: 26 Patient Condition:: Stable Medical Necessity - Tobacco Use Smoking Status: Former smoker Meaningful Use Info Meaningful Use Diagnoses (Choose all that apply): None applicable Code Visit Inpatient E&M: 40141 Disch Hosp
== END 2018-02-20 13:08 | disposition home or self-care (01) | DRG 602 ==
LOC: ED 12:17 → MS3 14:19
PROVIDERS: Podiatrist; Admitting Provider Student in an Organized Health Care Education/Training Program; Emergency Provider Emergency Medicine; Family Provider Family Medicine; PCP Family Medicine; Visit Provider Hospitalist
DX: L03.116 Cellulitis of left lower limb (principal); G93.49 Other encephalopathy; Z87.891 Personal history of nicotine dependence; Z79.899 Other long term (current) drug therapy
CPT/HCPCS: 36415; 73630; 80048; 85025; 85652; 86140; 87040; 99285; A4216; J0295

== ENCOUNTER → 2018-04-26 07:40 | Outpatient (CLI) | payer MEDICARE, SELFPAY ==
--- NOTE | 2018-04-26 07:43 | RAD_ITS ---
STUDY: X-RAY - ESOPHAGUS (BARIUM SWALLOW) WITH FLUOROSCOPY REASON FOR EXAM: Male, 32 years old. Dysphagia. TECHNIQUE: 18 view(s) of the esophagus were obtained following swallowing of barium. FLUOROSCOPY TIME (if supplied): (0:58) minutes/seconds COMPARISON: None. FINDINGS: There is no demonstrated esophageal foreign body. There is no demonstrated stricture or mucosal abnormality. Normal gastroesophageal junction, without a demonstrated hiatal hernia. Normal visualized aortic arch and descending thoracic aorta. Normal visualized pulmonary parenchyma. Normal visualized osseous structures of the thorax. RAD/Esophagus Only IMPRESSION: Normal plain film x-ray examination (barium swallow) of the esophagus. Electronically Signed: Shay Paz MD at 12:54 EDT Tel [phone], Service support ,
== END ==
PROVIDERS: Family Provider Family Medicine; PCP Family Medicine; Visit Provider Family Medicine
DX: R63.3 Feeding difficulties (principal); R47.02 Dysphasia
CPT/HCPCS: 74220

== ENCOUNTER → 2018-05-03 13:31 | Outpatient (CLI) | payer MEDICARE, SELFPAY ==
--- NOTE | 2018-05-03 13:30 | SP.MBSS_ITS ---
PRIMARY / SECONDARY DIAGNOSIS: dysphagia (R13.10) REFERRING PHYSICIAN: Dr. Ivan Begum MD CURRENT DIET: mechanical soft textures, nectar thickened liquids DENTITION: impaired MENTAL STATUS: impaired RESPIRATORY STATUS: O2 via room air PREVIOUS MODIFIED BARIUM SWALLOW STUDY: none 12/14/2016 MBS revealed moderate oropharyngeal dysphagia with SILENT aspiration of thin and nectar thickened liquids. 07/16/2014 MBS revealed moderate oropharyngeal dysphagia with consistent penetration during trials of nectar thickened liquids. REASON FOR REFERRAL: Patient is a 32 year old male referred for a modified barium swallow (MBS) study to objectively assess the Patients oropharyngeal swallow function under fluoroscopy secondary to persistent dysphagia with SILENT aspiration component. Copious diurnal sialorrhea present, with very weak cough response (dystussia / atussia) suggestive of continued high risk factors for silent aspiration. ADDITIONAL OBJECTIVE ASSESSMENT RESULTS: 04/26/2018 barium swallow revealed a normal plain film x-ray examination ( barium swallow) of the esophagus. 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 Dr. Lundberg was the radiologist present for this evaluation. This study was recorded in the lateral view and images were sent to PACs for storage. The following consistencies were presented to this patient for analysis of oropharyngeal swallow function: thin liquids, nectar thickened liquids, honey thickened liquids, pudding, and a regular textured, Jenelle Doone cookie. Results of the MBS are as follows: PENETRATION / ASPIRATION SCALE (HAMPTON): 1 = does not enter airway 2 = enters airway/above vocal folds/ejected 3 = enters airway/above vocal folds/not ejected 4 = enters airway/contacts vocal folds/ejected 5 = enters airway/contacts vocal folds/not ejected 6 = enters airway/below vocal folds/ejected 7 = enters airway/below vocal folds/not ejected despite effort 8 = enters airway/below vocal folds/no effort VIDEOFLOROSCOPIC SCALE SCORE (H[place]PTON): Grade I = aspiration of material that has penetrated into the laryngeal vestibule, intact cough reflex Grade II = aspiration < 10 % of the bolus, intact cough reflex Grade III = aspiration of < 10 % of the bolus, reduced cough reflex or aspiration of > 10 % of the bolus, intact cough reflex Grade IV = aspiration of > 10 % of the bolus, reduced cough reflex PENETRATION / ASPIRATION SCALE (SCORE) WITH VIDEOFLOROSCOPIC SCALE SCORE: Thin liquid - 5 mL tsp.: 1 Thin liquids via cup (single sip): 8 - Grade III [place] thickened liquids via cup (single sip): 1 [place]asco thickened liquids via cup (single sip): 1 [place] thickened liquids via cup (single sip): 8 - Grade IV Honey thickened liquids via cup (single sip): 1 Honey thickened liquids via cup (single sip): 1 Honey thickened liquids via cup (single sip): 1 Pudding via spoon: 1 Regular textured cookie: 1 Honey thickened liquids via cup (single sip): 1 Honey thickened liquids via cup (single sip): 1 Honey thickened liquids via cup (single sip): 1 Honey thickened liquids via cup (single sip): 1 IMPRESSION: DIAGNOSIS: moderate to severe oropharyngeal dysphagia (R13.12) ORAL PHASE CHARACTERIZED BY: LABIAL SEAL: consistent salivary escape beyond mid chin despite lack of anterior bolus loss TONGUE CONTROL DURING BOLUS MANIPULATION: intermittent posterior escape of greater than half of bolus BOLUS PREPARATION / MASTICATION: slow prolonged chewing/mashing with complete recollection BOLUS TRANSPORT / LINGUAL MOTION: brisk tongue motion ORAL RESIDUE: trace residue lining oral structures PHARYNGEAL PHASE CHARACTERIZED BY: INITIATION OF PHARYNGEAL SWALLOW: bolus head in pyriforms at first hyoid excursion SOFT PALATE ELEVATION: no bolus between soft palate and pharyngeal wall LARYNGEAL ELEVATION: partial superior movement of thyroid cartilage/partial approximation of arytenoids cartilage to epiglottic petiole ANTERIOR HYOID EXCURSION: partial anterior movement EPIGLOTTIC MOVEMENT: partial epiglottic inversion LARYNGEAL VESTIBULE CLOSURE AT HEIGHT OF SWALLOW: incomplete laryngeal vestibule closure with narrow column of air/contrast in laryngeal vestibule PHARYNGEAL STRIPPING WAVE: pharyngeal stripping wave present / diminished PHARYNGOESOPHAGEAL SEGMENT OPENING: complete distension and complete duration with no obstruction of flow TONGUE BASE RETRACTION: trace column of contrast between tongue base and posterior pharyngeal wall PHARYNGEAL RESIDUE: trace residue within or on pharyngeal structures ESOPHAGEAL PHASE CHARACTERIZED BY: ESOPHAGEAL BOLUS CLEARANCE IN THE UPRIGHT POSITION: could not view DIET TEXTURE RECOMMENDATIONS: Will recommend a mechanical soft textured, honey thickend liquid diet. COMPENSATORY STRATEGIES RECOMMENDED: Direct supervision with assistance as needed, reduced bolus volume, seated upright at 90 degrees during PO intake, remain upright for 30-60 minutes post meal (GERD precaution) INTERPRETATION OF RESULTS: Patient presents with longstanding moderate to severe oropharyngeal dysphagia ( R13.12) similar in nature to prior objective testing results. Oral phase primarily marked by mild mastication inefficiency likely influenced / possibly exacerbated by intake behavior patterns (bolting / tachyphagia); suboptimal lingual control resulting in premature spillage directly contributing to pre- prandial penetration and SILENT aspiration of thin and nectar thickened liquids. Pharyngeal phase primarily marked by impaired pharyngeal swallow onset timing and reduced closure of the airway during deglutition with insufficient laryngeal vestibule pressure generated to expel penetrated material. All deficits appear to be controlled via bolus volume and viscosity adjustments, though cannot rule out further silent aspiration with honey thickened liquids. Little to no pressure generated during prompted volitional cough (dystussia / atussia). Patient noted to SILENTLY aspirate with thin liquids and nectar thicken liquids, with clinical assessment at bedside relying on identification of classic overt signs and symptoms of aspiration unreliable. RECOMMENDATIONS: Would strongly discourage advancement past honey thickened liquids without completion of a repeat modified barium swallow study due to the extent of aspirate identified that was SILENT in nature. Would not consider the Patients recovery potential to be halting, as the current study results are very similar in nature to prior objective testing results. Would recommend skilled speech- language intervention with a management / training approach via caregiver training / implementation of recommended compensatory strategies; caregiver education regarding silent aspiration and medical compilations of persistent aspiration; and caregiver training targeting meal preparation / thickened liquid preparation, with intervention optimally completed WITHIN THE PRISON vs. outpatient setting (if feasible). Would consider a restorative approach to be less beneficial at this juncture. Would recommend continual monitoring of intake performance to include monitoring for temperature spikes following meals of >1.5 degrees, unexplained lethargy post meals, coughing at mid to latter portions of meals, with any changes to be directly reported to the Patients primary care provider for further intervention. Would consider this Patient to be at higher risk for both malnutrition and dehydration (due to the recommended diet texture restrictions and higher risk of early satiety with thickened liquids), and pulmonary complications associated with aspiration (due to the presence and extent of SILENT aspiration, cognitive deficits, significant dystussia / atussia, and severe diurnal sialorrhea). ADDITIONAL COMMENTS/RECOMMENDATIONS: Results and recommendations were discussed with the Patient immediately following MBS completion, with the Patient verbalizing understanding and agreement with all recommendations and education provided. IMAGE COUNT: [id number] G-CODES: SWALLOWING [id number] Current Status: CL SWALLOWING [id number] Goal Status: CL SWALLOWING [id number] Discharge Status: CL Jovan Ansari M.A., CCC-FIELD SERVICE COORDINATOR [facility] Speech-Language Pathology Department [email or web address]
--- NOTE | 2018-05-03 13:31 | RAD_ITS ---
STUDY: SWALLOWING STUDY (MODIFIED BARIUM SWALLOW WITH SPEECH THERAPY) REASON FOR EXAM: Male, 32 years old. Dysphagia. TECHNIQUE: The examination was performed with Speech Pathology in attendance. Under fluoroscopic observation, the patient ingested thin barium and thick barium. FLUOROSCOPY TIME: 2:44 minutes/seconds Dose: 5.43 mGy RADIOLOGIST INVOLVEMENT: Yes, present COMPARISON: None available. FINDINGS: The following was observed during swallowing of the various mixtures of barium: Thin Barium: There were findings of aspiration suspected below the vocal cords. Laryngeal penetration. Thick Barium: There were findings of aspiration not below the vocal cords. Laryngeal penetration. RAD/Swallowing Function w/Video IMPRESSION: Findings of aspiration suspectible vocal cords. Increased risk for aspiration below the vocal cords. The swallow study findings were discussed with the patient by the speech pathologist at the conclusion of the examination. Please see speech pathology report for more information and recommendations. The procedure was performed by Antwan Wade under the direct supervision of Dr. Lundberg. Electronically Signed: Bassem Lundberg, at 16:03 EDT Tel , Service support ,
== END ==
PROVIDERS: Family Provider Family Medicine; PCP Family Medicine; Visit Provider Family Medicine
DX: R13.10 Dysphagia, unspecified (principal)
CPT/HCPCS: 74230; 92611

== ENCOUNTER → 2021-11-24 | Outpatient (REF) | payer SELFPAY | END | disposition home or self-care (01) | LOC: OLS.AHA 04:07 | PROVIDERS: PCP Family Medicine; Visit Provider Family Medicine | DX: E72.20 Disorder of urea cycle metabolism, unspecified (principal); E78.5 Hyperlipidemia, unspecified; G93.40 Encephalopathy, unspecified | CPT/HCPCS: 82140 ==

== ENCOUNTER → 2021-12-31 | Outpatient (REF) | payer SELFPAY | END | disposition home or self-care (01) | LOC: OLS.AHA 04:24 | PROVIDERS: PCP Family Medicine; Visit Provider Family Medicine | DX: E72.20 Disorder of urea cycle metabolism, unspecified (principal) | CPT/HCPCS: 82140 ==

== ENCOUNTER → 2022-04-01 | Outpatient (REF) | payer SELFPAY | END | disposition home or self-care (01) | LOC: OLS.AHA 08:35 | PROVIDERS: PCP Family Medicine; Referring Provider Family Medicine; Visit Provider Family Medicine | DX: E72.20 Disorder of urea cycle metabolism, unspecified (principal) | CPT/HCPCS: 82140 ==